=== PATIENT | female | born 1955 | race Caucasian/White ===

== ENCOUNTER → 2019-09-28 | Outpatient (CLI) | payer MEDICARE, OTHER ==
[2015-03-17 19:05] VITALS: BP 141/75
[2019-09-28 11:35] LABS: BASO # 0.1 x10^3/uL (0.0-0.2); BASO % 1 % (0-3); EOS # 0.2 x10^3/uL (0.0-0.7); EOS % 2 % (0-3); HEMATOCRIT 40.3 % (36.0-47.0); HEMOGLOBIN 13.4 g/dL (12.0-15.5); LYMPH # 3.3 x10^3/uL (1.0-4.8); LYMPH % 46 % (24-48); MEAN CORPUSCULAR HEMOGLOBIN 34 pg (25-35); MEAN CORPUSCULAR HGB CONC 33 g/dL (31-37); MEAN CORPUSCULAR VOLUME 104 fL (79-100); MONO # 0.6 x10^3/uL (0.0-1.1); MONO % 8 % (0-9); NEUT % 43 % (31-73); PLATELET COUNT 59 x10^3/uL (140-400); RED BLOOD COUNT 3.89 x10^6/uL (3.50-5.40); RED CELL DISTRIBUTION WIDTH 13.9 % (11.5-14.5); WHITE BLOOD COUNT 7.1 x10^3/uL (4.0-11.0)
[2019-09-28 11:42] LABS: ALBUMIN 3.9 g/dL (3.4-5.0); ALBUMIN/GLOBULIN RATIO 1.1 (1.0-1.7); CALCIUM 9.1 mg/dL (8.5-10.1); GFR 55.6; POTASSIUM 4.1 mmol/L (3.5-5.1); TOTAL BILIRUBIN 0.2 mg/dL (0.2-1.0); TOTAL PROTEIN 7.6 g/dL (6.4-8.2)
[2019-09-28 13:57] LABS: PLT ESTIMATE DECREASED (ADEQUATE)
[2019-09-28 18:07] LABS: THYROXINE 6.3 ug/dL (4.5-12.0)
== END | disposition home or self-care (01) ==
LOC: LAB 10:27
PROVIDERS: ATTEND Psychiatry & Neurology Neurology
DX: R41.3 Other amnesia (principal); F03.90 Unspecified dementia, unspecified severity, without behavioral disturbance, psychotic disturbance, mood disturbance, and anxiety; E55.9 Vitamin D deficiency, unspecified; Z11.59 Encounter for screening for other viral diseases
CPT/HCPCS: 36415; 80053; 82306; 82607; 84436; 84443; 84480; 85025; 86592

== ENCOUNTER 2020-03-25 11:26 | Emergency (ER) | payer MEDICARE, OTHER ==
[~2020-03-25] VITALS: Ht 175.3 cm; Wt 82.0 kg
--- NOTE | 2020-03-25 11:43 | PHYS DOC ---
Past History Past Medical History: Anxiety, Bipolar, Depression, GERD Past Surgical History: Cholecystectomy, Hysterectomy Alcohol Use: Occasionally Drug Use: None Adult General Chief Complaint Chief Complaint: SHORTNESS OF BREATH HPI HPI Patient with dementia and Parkinson's presents for shortness of breath. Patient's PCP is Dr. Hines who is in the middle of a hemoptysis/thoracic mass work-up in outpatient setting. Patient has been more dyspneic, having episodes of hemoptysis, and overall generalized fatigue. Patient seen by PCP yesterday and was advised to go to ED for evaluation. Patient did not comply. Nonetheless, patient's daughter who heard of recommendation was concerned that her mother did not comply with PCPs orders and took patient to our ED for evaluation today. On arrival, patient complains of chronic shortness of breath. She denies any constitutional symptoms. She has not had any episodes of hemoptysis. She is pending CT chest with contrast this upcoming Friday to better classify a concerning right lung lesion found by x-ray performed yesterday by PCP Review of Systems Review of Systems Fourteen body systems of review of systems have been reviewed. See HPI for pertinent positives and negative responses, other cardenas all other systems are negative, non-pertinent or non-contributory Allergies Allergies Allergies Coded Allergies Type Severity Reaction Last Updated Verified codeine Allergy Unknown 03/17/15 No Physical Exam Physical Exam Constitutional: Looks stated age, thin appearing, no acute distress, non-toxic appearance. [] HENT: Normocephalic, atraumatic, bilateral external ears normal, oropharynx moist, no oral exudates, nose normal. [] Eyes: PERRLA, EOMI, conjunctiva normal, no discharge. [] Neck: Normal range of motion, no tenderness, supple, no stridor. [] Cardiovascular:Heart rate regular rhythm, no murmur [] Lungs & Thorax: Coarse breath sounds to auscultation bilaterally, breathing through pursed lips with mild accessory muscle use of scalenes [] Abdomen: Bowel sounds normal, soft, no tenderness, no masses, no pulsatile masses. [] Skin: Warm, dry, no erythema, no rash. [] Back: No tenderness, no CVA tenderness. [] Extremities: No tenderness, no cyanosis, no clubbing, ROM grossly intact, no edema. [] Neurologic: Alert and oriented X 3, grossly intact motor and sensory function, no focal deficits noted. [] Psychologic: Affect normal, judgement normal, depressed mood. [] Current Patient Data Vital Signs Vital Signs Date Time Temp Pulse Resp B/P (MAP) Pulse Ox O2 Delivery O2 Flow Rate FiO2 03/25/20 11:44 97.0 79 16 135/73 (93) 96 Room Air Lab Results Laboratory Tests Test 03/25/20 12:09 White Blood Count 12.4 x10^3/uL Red Blood Count 3.83 x10^6/uL Hemoglobin 13.4 g/dL Hematocrit 39.4 % Mean Corpuscular Volume 103 fL Mean Corpuscular Hemoglobin 35 pg Mean Corpuscular Hemoglobin Concent 34 g/dL Red Cell Distribution Width 14.0 % Platelet Count 75 x10^3/uL Neutrophils (%) (Auto) 67 % Lymphocytes (%) (Auto) 23 % Monocytes (%) (Auto) 8 % Eosinophils (%) (Auto) 2 % Basophils (%) (Auto) 1 % Neutrophils # (Auto) 8.3 x10^3uL Lymphocytes # (Auto) 2.8 x10^3/uL Monocytes # (Auto) 0.9 x10^3/uL Eosinophils # (Auto) 0.3 x10^3/uL Basophils # (Auto) 0.1 x10^3/uL Platelet Estimate Decreased Large Platelets Few Giant Platelets Few Polychromasia Slight Sodium Level 136 mmol/L Potassium Level 3.7 mmol/L Chloride Level 99 mmol/L Carbon Dioxide Level 28 mmol/L Anion Gap 9 Blood Urea Nitrogen 12 mg/dL Creatinine 0.9 mg/dL Estimated GFR (Cockcroft-Gault) 62.6 BUN/Creatinine Ratio 13 Glucose Level 115 mg/dL Calcium Level 9.4 mg/dL Total Bilirubin 0.4 mg/dL Aspartate Amino Transf (AST/SGOT) 15 U/L Alanine Aminotransferase (ALT/SGPT) 13 U/L Alkaline Phosphatase 89 U/L Total Protein 8.1 g/dL Albumin 3.9 g/dL Albumin/Globulin Ratio 0.9 Current Medications Medications (Trade) Dose Ordered Sig/Ryder Route PRN Reason Start Time Stop Time Status Last Admin Dose Admin Iohexol (Omnipaque 300 Mg/ml) 75 ml 1X ONCE IV 03/25/20 12:00 03/25/20 12:10 DC EKG EKG [] Radiology/Procedures Radiology/Procedures PROCEDURE: CT CHEST W/CONTRAST CT chest with contrast. HISTORY: Lung mass CT scan the chest was done using 75 mL Omnipaque 300 contrast. There is no recent study for comparison. There is an old chest x-ray from 2015. Thyroid is homogeneous. There is no mediastinal adenopathy. There is no pleural effusion. Visualized portions the liver and spleen are unremarkable. Adrenal glands are normal. Left lung is free of infiltrates or nodules. There is a cavitary mass in the right upper lobe. There is an air-fluid level within the mass. There is mild infiltrate surrounding the mass especially peripherally. An abscess can have this pattern, cavitary lung cancer is possible. TB can have this pattern. IMPRESSION: 1. Cavitary right upper lobe lung mass with surrounding infiltrate. PQRS Compliance Statement: One or more of the following individualized dose reduction techniques were utilized for this examination: 1. Automated exposure control 2. Adjustment of the mA and/or kV according to patient size 3. Use of iterative reconstruction technique Electronically signed by: Jayjay Jackson MD (03/25/2020 1:10 PM) [facility] Course & Med Decision Making Course & Med Decision Making Vital signs stable, comprehensive history and physical exam nonemergent for emergent invasive/surgical intervention Pertinent labs and imaging performed, images were reviewed in depth with both patient and daughter PCP was called and concerning finding of right upper lobe cavitary lesion was discussed, patient has pending referral to Dr. Wyatt, field service technician at [facility]. I discussed patient's ED course, fact that she is hemodynamically stable, well- appearing, and showing no signs or symptoms indicative of antibiotic use Joint decision between myself, PCP, patient, and daughter to discharge home in stable condition with continued close outpatient follow-up Strict return precautions discussed at length with good understanding by patient and daughter, all questions and concerns addressed prior to departure Dragon Disclaimer Dragon Disclaimer This electronic medical record was generated, in whole or in part, using a voice recognition dictation system. Departure Departure: Impression: Primary Impression: Cavitating mass in right upper lung lobe Disposition: 01 HOME/RESIDENCE PRIOR TO ADM Condition: STABLE Referrals: DEBBY HINES MD (PCP) Additional Instructions: As discussed prior to your ED departure, your ED course and CT findings were discussed with your PCP, Dr. Hines You were previously referred to Dr. Wyatt, who is a field service technician (lung doctor) who is based out of [facility] Your PCP was sent information regarding today's visit in addition to a copy of your CT scan image results Justification of Admission: Justification of Admission: Justification of Admission Dx: N/A ANAMARIA OSBORNE DO Mar 25, 2020 11:43
[2020-03-25 11:44] VITALS: BP 135/73
[2020-03-25] MEDS ORDERED: IOHEXOL 300 MG/ML 75 ML VIAL. IV ONE (12:00)
[2020-03-25 12:42] LABS: CALCIUM 9.4 mg/dL (8.5-10.1); CREATININE 0.9 mg/dL (0.6-1.0); GFR 62.6; POTASSIUM 3.7 mmol/L (3.5-5.1)
[2020-03-25 12:47] LABS: ALBUMIN 3.9 g/dL (3.4-5.0); ALBUMIN/GLOBULIN RATIO 0.9 (1.0-1.7); TOTAL BILIRUBIN 0.4 mg/dL (0.2-1.0); TOTAL PROTEIN 8.1 g/dL (6.4-8.2)
[2020-03-25 12:59] LABS: BASO # 0.1 x10^3/uL (0.0-0.2); BASO % 1 % (0-3); EOS # 0.3 x10^3/uL (0.0-0.7); EOS % 2 % (0-3); HEMATOCRIT 39.4 % (36.0-47.0); HEMOGLOBIN 13.4 g/dL (12.0-15.5); LYMPH # 2.8 x10^3/uL (1.0-4.8); LYMPH % 23 % (24-48); MEAN CORPUSCULAR HEMOGLOBIN 35 pg (25-35); MEAN CORPUSCULAR HGB CONC 34 g/dL (31-37); MEAN CORPUSCULAR VOLUME 103 fL (79-100); MONO # 0.9 x10^3/uL (0.0-1.1); MONO % 8 % (0-9); NEUT # 8.3 x10^3uL (1.8-7.7); NEUT % 67 % (31-73); PLATELET COUNT 75 x10^3/uL (140-400); RED BLOOD COUNT 3.83 x10^6/uL (3.50-5.40); WHITE BLOOD COUNT 12.4 x10^3/uL (4.0-11.0)
[2020-03-25 13:12] LABS: PLT ESTIMATE DECREASED (ADEQUATE)
[2020-03-25 13:13] LABS: POLYCHROMASIA SLIGHT
--- NOTE | 2020-03-25 13:13 | RAD ---
CT chest with contrast. HISTORY: Lung mass CT scan the chest was done using 75 mL Omnipaque 300 contrast. There is no recent study for comparison. There is an old chest x-ray from 2015. Thyroid is homogeneous. There is no mediastinal adenopathy. There is no pleural effusion. Visualized portions the liver and spleen are unremarkable. Adrenal glands are normal. Left lung is free of infiltrates or nodules. There is a cavitary mass in the right upper lobe. There is an air-fluid level within the mass. There is mild infiltrate surrounding the mass especially peripherally. An abscess can have this pattern, cavitary lung cancer is possible. TB can have this pattern. IMPRESSION: 1. Cavitary right upper lobe lung mass with surrounding infiltrate. PQRS Compliance Statement: One or more of the following individualized dose reduction techniques were utilized for this examination: 1. Automated exposure control 2. Adjustment of the mA and/or kV according to patient size 3. Use of iterative reconstruction technique Electronically signed by: Jayjay Jackson MD (03/25/2020 1:10 PM) [facility]
== END 2020-03-25 14:20 | disposition home or self-care (01) ==
LOC: ER 11:26
DX: R91.8 Other nonspecific abnormal finding of lung field (principal); K21.9 Gastro-esophageal reflux disease without esophagitis; Z88.5 Allergy status to narcotic agent
CPT/HCPCS: 36415; 71260; 80053; 85025; 99285; Q9967; 99284

== ENCOUNTER → 2020-04-12 | Outpatient (CLI) | payer MEDICARE, OTHER ==
[2020-03-25 11:44] VITALS: BP 135/73
--- NOTE | 2020-04-12 10:16 | RAD ---
EXAM: CHEST 2 VIEWS. HISTORY: Lung mass. COMPARISON: 03/25/2020, 03/17/2015. FINDINGS: Frontal and lateral views of the chest are obtained. A cavitary lesion containing an air-fluid level in the inferior aspect of the right upper lobe measures 5.0 x 4.7 cm. There is no pneumothorax or pleural effusion. The heart is not enlarged. IMPRESSION: 1. 5.0 cm cavitary mass within the right upper lobe as seen on prior CT. Electronically signed by: Rinku Concepcion MD (04/12/2020 10:13 AM) [id number]
== END | disposition home or self-care (01) ==
LOC: CT 09:45
PROVIDERS: ATTEND Internal Medicine Critical Care Medicine
DX: R91.8 Other nonspecific abnormal finding of lung field (principal)
CPT/HCPCS: 71046

== ENCOUNTER → 2020-05-26 | Outpatient (CLI) | payer OTHER ==
--- NOTE | 2020-05-26 13:04 | RAD ---
Examination: CT CHEST WO CONTRAST History: Reason: LUNG NODULE / Spl. Instructions: / History: Comparison/Correlation: 03/25/2020 CT chest with contrast, 04/12/2020 chest x-ray exam Findings: Axial images of the chest were obtained without contrast. Sagittal and coronal reformatted images were provided. Right middle lobe cavitary mass at the superior aspect abutting the major and minor fissure is increased in size since the previous fluid level seen within the surrounding groundglass infiltrate is increased. Atelectasis at the anterior aspect of this cavitary process has increased in the interval. Cavitary process currently measures 5 cm x 5.2 cm x 5.6 cm longitudinal. This represents an increase in size by 1.5 cm x 0.8 cm x 1.4 cm in longitudinal since the prior exam. There is a new cavitary process involving the posterolateral right lung apex which currently measures 1.6 cm x 0.9 cm on axial image 31 series 4. This has developed in region of minimal infiltrate seen retrospectively). Punctate noncalcified nodules involving upper lung jaquez are seen and appear new in the interval. No new consolidative processes. Few nonenlarged superior sagittal lymph nodes are present. No pneumothorax. No pleural or pericardial effusion. Thoracic aortic contour is remarkable. Coronary arterial calcifications identified. Bony structures are unremarkable for the patient's age. Cholecystectomy. Impression: Interval increase in right middle lobe cavitary process. Punctate new noncalcified nodules are seen in the upper lung jaquez. Right apical small cavitary lesion in the interval. Findings presumably relate to infectious etiology such as fungal process. Neoplastic etiology is necessarily excluded. PQRS Compliance Statement: One or more of the following individualized dose reduction techniques were utilized for this examination: 1. Automated exposure control 2. Adjustment of the mA and/or kV according to patient size 3. Use of iterative reconstruction technique Electronically signed by: Pepe Ferrara MD (05/26/2020 1:01 PM) [id number]
== END | disposition home or self-care (01) ==
LOC: CT 09:21
PROVIDERS: ATTEND Internal Medicine Critical Care Medicine
DX: J98.11 Atelectasis (principal); R91.1 Solitary pulmonary nodule; I25.10 Atherosclerotic heart disease of native coronary artery without angina pectoris; Z90.49 Acquired absence of other specified parts of digestive tract
CPT/HCPCS: 71250